=== PATIENT | male | born 1985 | race African-American/Black ===

== ENCOUNTER 2020-02-10 10:15 | Emergency (ER) | payer OTHER ==
[~2020-02-10] VITALS: Ht 175.3 cm; Wt 93.9 kg
[2020-02-10 10:26] VITALS: Ht 175.3 cm; Wt 93.9 kg
[2020-02-10 11:41] LABS: PLATELET COUNT 168 x10^3mcL (130-400)
[2020-02-10 12:08] LABS: CALCIUM 9.1 mg/dL (8.5-10.1); CARBON DIOXIDE 26.3 mmol/L (21-32); CREATININE SERUM 1.6 mg/dL (0.7-1.3); POTASSIUM SERUM 4.5 mmol/L (3.5-5.1)
[2020-02-10 12:21] LABS: MAGNESIUM 2.3 mg/dL (1.8-2.4)
[2020-02-10 12:27] LABS: RED CELL DISTRIBUTION WIDTH 14.8 % (11.5-14.5)
[2020-02-10 13:39] VITALS: BP 133/76
[2020-02-10 14:03] LABS: BAND NEUTROPHIL 3 % (0-10); MONOCYTE 9 % (0-7); PLATELET MORPHOLOGY LARGE PLATELET SEEN; SEGMENTED NEUTROPHILS 72 % (37-75); rbc morphology (normal/abnorm) ABNORMAL (NORMAL)
== END 2020-02-10 13:39 | disposition home or self-care (01) ==
LOC: ED 10:15
PROVIDERS: Emergency Medicine
DX: R55 Syncope and collapse (principal); S01.81XA Laceration without foreign body of other part of head, initial encounter; R11.0 Nausea; X58.XXXA Exposure to other specified factors, initial encounter; Y93.89 Activity, other specified; Y92.89 Other specified places as the place of occurrence of the external cause; Y99.8 Other external cause status
CPT/HCPCS: J7030